=== PATIENT | male | born 1980 | race Caucasian/White ===

== ENCOUNTER 2016-08-29 07:30 | Day surgery (SDC) | payer OTHER ==
[~2016-08-29] VITALS: Ht 180.3 cm; Wt 81.6 kg
[~2016-08-29 07:30] MED LIST: MOTRIN600 MG PO; MOTRIN800 MG PO; VALIUM5 MG PO
[2016-08-29 08:22] VITALS: BP 110/62
[2016-08-29 08:24] LABS: HEMATOCRIT 44.3 % (38.0-50.0); MCH 29.4 PG (29.0-34.0); MCHC 33.6 G/DL (30.0-36.0); MCV 87.5 FL (86-99); MEAN PLAT.VOLUME 11.7 uM^3 (9.0-12.4); PLATELET COUNT 152 K/uL (156-360); RBC DIS.WIDTH-CV 13.1 % (11.8-14.6); RBC DIS.WIDTH-SD 41.8 % (39-53); RED BLOOD COUNT 5.06 M/uL (4.00-5.50); WHITE BLOOD COUNT 6.7 K/uL (4.1-10.2)
[2016-08-29 12:52] VITALS: BP 130/69
[2016-08-29 13:11] VITALS: BP 131/678
== END 2016-08-29 13:15 | disposition home or self-care (01) ==
LOC: SDC 07:30
PROVIDERS: Neurological Surgery
PROC: 0RG10A0 Fusion of Cervical Vertebral Joint with Interbody Fusion Device, Anterior Approach, Anterior Column, Open Approach (ICD-10-PCS; principal; 2016-08-29)
DX: M50.10 Cervical disc disorder with radiculopathy, unspecified cervical region (principal); M47.22 Other spondylosis with radiculopathy, cervical region
CPT/HCPCS: 72020; 76000; 85027; C1713; J0330; J0690; J1100; J2405; J2710; J3010